=== PATIENT | female | born 1955 | race Caucasian/White ===

== ENCOUNTER → 2020-01-04 09:49 | Outpatient (CLI) | payer BC, SELFPAY ==
[2020-01-04 10:36] LABS: Add Manual Diff / Slide Review NO; Basophils Absolute Auto 0 /uL (0-100); Basophils Percent Auto 0.9 % (0-2); Eosinophils Absolute Auto 100 /uL (0-450); Eosinophils Percent Auto 2.3 % (2-4); Hematocrit 39.1 % (36-46); Hemoglobin 13.4 g/dL (12.0-16.0); Lymphocytes Absolute Auto 1300 /uL (1100-4500); Lymphocytes Percent Auto 28.8 % (25-40); Mean Corpuscular HGB Conc 34.3 % (30-36); Mean Corpuscular Hemoglobin 30.5 PG (26-34); Monocytes Absolute Auto 400 /uL (0-900); Monocytes Percent Auto 9.2 % (3-14); Neutrophils Absolute Auto 2600 /uL (1500-7000); Neutrophils Percent Auto 58.8 % (50-75); Platelet Count 267 X10^3/uL (150-400); Red Cell Distribution Width 13.2 % (11.6-14.8); White Blood Cell Count 4.5 X10^3/uL (4.5-11.0)
[2020-01-04 10:53] LABS: Alanine Aminotransferase 17 IU/L (<35); Albumin 4.2 g/dL (3.5-5.0); Albumin Globulin Ratio 1.4 (1.0-2.8); Alkaline Phosphatase 61 U/L (38-126); Aspartate Aminotransferase 22 IU/L (14-36); Bilirubin Total 0.9 mg/dL (0.2-1.3); Blood Urea Nitrogen 15 mg/dL (7-17); Calcium 9.6 mg/dL (8.4-10.2); Carbon Dioxide 28 mmol/L (22-32); Chloride 103 mmol/L (98-107); Cholesterol 170 mg/dL (140-199); Estimated Glomerular Filt Rate > 60.0 mL/min (>60); Globulin 2.9 g/dL (1.7-4.1); Glucose 92 mg/dL (80-110); HDL Cholesterol 59 mg/dL (40-60); HEMOLYSIS < 15 (0-50); LDL Cholesterol Calculated 97 mg/dL (<100); Sodium 139 mmol/L (137-145); Total Protein 7.1 g/dL (6.3-8.2); Triglycerides 70 mg/dL (35-150)
[2020-01-04 11:04] LABS: Free T4, Direct Thyroxine 1.43 ng/dL (0.78-2.19)
[2020-01-04 11:08] LABS: Vitamin D 25 Hydroxy (D3) 56.7 ng/mL (30.0-100.0)
[2020-01-04 11:17] LABS: Thyroid Stimulating Hormone 1.88 uIU/mL (0.47-4.68)
== END ==
PROVIDERS: PCP Nurse Practitioner; Referring Provider Nurse Practitioner; Visit Provider Family Medicine
DX: E03.9 Hypothyroidism, unspecified (principal); E78.5 Hyperlipidemia, unspecified; R73.01 Impaired fasting glucose; E55.9 Vitamin D deficiency, unspecified
CPT/HCPCS: 36415; 80053; 80061; 82306; 84439; 84443; 84481; 85025

== ENCOUNTER → 2020-05-09 15:04 | Outpatient (CLI) | payer BC, SELFPAY ==
--- NOTE | 2020-05-09 15:06 | DI.RAD.S_ITS ---
PROCEDURE: XR CLAVICLE RT INDICATIONS: Medial border clavicular enlargement TECHNIQUE: 2 views of the clavicle were acquired. COMPARISON: None. FINDINGS: Bones: No fractures or dislocations. Coracoclavicular and acromioclavicular intervals are maintained. Visualized portions of the sternoclavicular joint appear unremarkable. Mild degenerative changes of the right acromioclavicular joint. No suspicious bony lesions. Soft tissues: No suspicious soft tissue calcifications. IMPRESSION: 1. Right shoulder without acute fracture or malalignment. 2. Mild degenerative changes of the right acromioclavicular joint. 3. Visualized portions of the right sternoclavicular joint appear unremarkable. Dictated by: Jarrett Roldan M.D. on 05/09/2020 at 15:22 Approved by: Jarrett Roldan M.D. on 05/09/2020 at 15:25
[2020-05-09 15:31] LABS: Add Manual Diff / Slide Review NO; Basophils Absolute Auto 100 /uL (0-100); Basophils Percent Auto 1.1 % (0-2); Eosinophils Absolute Auto 100 /uL (0-450); Eosinophils Percent Auto 1.7 % (2-4); Hematocrit 39.5 % (36-46); Hemoglobin 12.8 g/dL (12.0-16.0); Lymphocytes Absolute Auto 2200 /uL (1100-4500); Lymphocytes Percent Auto 33.9 % (25-40); Mean Corpuscular HGB Conc 32.5 % (30-36); Mean Corpuscular Hemoglobin 29.1 PG (26-34); Mean Corpuscular Volume 89.7 fL (80-100); Monocytes Absolute Auto 500 /uL (0-900); Monocytes Percent Auto 8.4 % (3-14); Neutrophils Absolute Auto 3600 /uL (1500-7000); Neutrophils Percent Auto 54.9 % (50-75); Platelet Count 262 X10^3/uL (150-400); Red Cell Distribution Width 13.4 % (11.6-14.8); White Blood Cell Count 6.5 X10^3/uL (4.5-11.0)
[2020-05-09 15:46] LABS: Erythrocyte Sedimentation Rate 11 MM/HR (0-20)
== END ==
PROVIDERS: PCP Family Medicine; Referring Provider Family Medicine; Visit Provider Family Medicine
DX: M89.319 Hypertrophy of bone, unspecified shoulder (principal)
CPT/HCPCS: 36415; 73000; 85025; 85651

== ENCOUNTER → 2020-05-14 11:02 | Outpatient (CLI) | payer BC, SELFPAY ==
--- NOTE | 2020-05-14 11:04 | DI.US.S_ITS ---
PROCEDURE: US SOFT TISSUE HEAD AND NECK INDICATIONS: Fullness around the anterior and inferior aspect of the neck TECHNIQUE: Real-time scanning was performed of the neck region of interest, with image documentation. COMPARISON: None. FINDINGS: The area of palpable lump in the lower medial right neck was interrogated with high megahertz linear transducer. Area of subjective lump is felt to correlate with the presence of a prominent right clavicular head at the right sternoclavicular joint. No suspicious mass is identified. IMPRESSION: Palpable lump likely corresponds to a prominent right clavicular head at the right sternoclavicular joint. Dictated by: Deo Reyes M.D. on 05/14/2020 at 12:28 Approved by: Deo Reyes M.D. on 05/14/2020 at 12:35
== END ==
PROVIDERS: PCP Family Medicine; Referring Provider Family Medicine; Visit Provider Family Medicine
DX: M89.319 Hypertrophy of bone, unspecified shoulder (principal); R22.1 Localized swelling, mass and lump, neck
CPT/HCPCS: 76536

== ENCOUNTER → 2020-10-21 08:42 | Outpatient (CLI) | payer BC, SELFPAY | PROVIDERS: PCP Family Medicine; Visit Provider Nurse Practitioner | DX: R30.0 Dysuria (principal) | CPT/HCPCS: 87086 ==

== ENCOUNTER → 2020-11-10 10:55 | Outpatient (CLI) | payer BC, SELFPAY ==
[2020-11-10 11:52] LABS: Alanine Aminotransferase 20 IU/L (<35); Albumin 4.3 g/dL (3.5-5.0); Albumin Globulin Ratio 1.3 (1.0-2.8); Alkaline Phosphatase 62 U/L (38-126); Aspartate Aminotransferase 26 IU/L (14-36); Bilirubin Total 0.9 mg/dL (0.2-1.3); Blood Urea Nitrogen 11 mg/dL (7-17); Calcium 9.7 mg/dL (8.4-10.2); Carbon Dioxide 32 mmol/L (22-32); Chloride 104 mmol/L (98-107); Estimated Glomerular Filt Rate > 60.0 mL/min (>60); Globulin 3.3 g/dL (1.7-4.1); Glucose 91 mg/dL (80-110); HEMOLYSIS < 15 (0-50); Potassium 4.6 mmol/L (3.4-5.1); Sodium 137 mmol/L (137-145); Total Protein 7.6 g/dL (6.3-8.2)
[2020-11-10 12:25] LABS: Free T4, Direct Thyroxine 1.16 ng/dL (0.78-2.19)
[2020-11-10 12:39] LABS: Thyroid Stimulating Hormone 1.81 uIU/mL (0.47-4.68)
== END ==
PROVIDERS: PCP Family Medicine; Referring Provider Family Medicine; Visit Provider Family Medicine
DX: E03.9 Hypothyroidism, unspecified (principal); I10 Essential (primary) hypertension
CPT/HCPCS: 36415; 80053; 84439; 84443

== ENCOUNTER → 2021-04-09 11:44 | Outpatient (CLI) | payer BC, SELFPAY ==
[2021-04-09 12:31] LABS: Add Manual Diff / Slide Review NO; Basophils Absolute Auto 0 /uL (0-100); Basophils Percent Auto 0.8 % (0-2); Eosinophils Absolute Auto 100 /uL (0-450); Hematocrit 37.2 % (36-46); Hemoglobin 12.5 g/dL (12.0-16.0); Lymphocytes Absolute Auto 1600 /uL (1100-4500); Lymphocytes Percent Auto 28.1 % (25-40); Mean Corpuscular HGB Conc 33.7 % (30-36); Mean Corpuscular Volume 88.8 fL (80-100); Monocytes Absolute Auto 500 /uL (0-900); Monocytes Percent Auto 8.9 % (3-14); Neutrophils Absolute Auto 3600 /uL (1500-7000); Neutrophils Percent Auto 61.2 % (50-75); Platelet Count 265 X10^3/uL (150-400); Red Blood Cell Count 4.18 X10^6/uL (4.0-5.2); Red Cell Distribution Width 13.6 % (11.6-14.8); White Blood Cell Count 5.8 X10^3/uL (4.5-11.0)
[2021-04-09 14:53] LABS: Alanine Aminotransferase 15 IU/L (<35); Albumin Globulin Ratio 1.5 (1.0-2.8); Alkaline Phosphatase 56 U/L (38-126); Aspartate Aminotransferase 23 IU/L (14-36); BUN Creatinine Ratio 20.7 (6-22); Bilirubin Total 1.2 mg/dL (0.2-1.3); Blood Urea Nitrogen 12 mg/dL (7-17); Calcium 9.6 mg/dL (8.4-10.2); Carbon Dioxide 28 mmol/L (22-32); Chloride 103 mmol/L (98-107); Estimated Glomerular Filt Rate > 60.0 mL/min (>60); Globulin 2.7 g/dL (1.7-4.1); Glucose 81 mg/dL (80-110); HEMOLYSIS < 15 (0-50); Potassium 3.9 mmol/L (3.4-5.1); Sodium 139 mmol/L (137-145); Total Protein 6.7 g/dL (6.3-8.2)
== END ==
PROVIDERS: PCP Family Medicine; Referring Provider Registered Nurse; Visit Provider Registered Nurse
DX: R10.9 Unspecified abdominal pain (principal)
CPT/HCPCS: 36415; 80053; 85025

== ENCOUNTER → 2021-04-13 08:06 | Outpatient (CLI) | payer BC, SELFPAY ==
--- NOTE | 2021-04-13 08:07 | DI.US.S_ITS ---
PROCEDURE: US ABDOMEN COMPLETE INDICATIONS: ABDOMINAL PAIN TECHNIQUE: Real-time scanning was performed of the abdominal and retroperitoneal organs, with image documentation. COMPARISON: None. FINDINGS: Liver: Liver is normal in size. The liver echotexture overall is within normal limits. Within the liver there are 2 hyperechoic homogeneous nonvascular lesions. One is seen within the medial left lobe measuring up to 11 mm and a 2nd seen posteriorly on the right measuring up to 1 cm. The main portal vein demonstrates normal size and demonstrates normal appearing, hepatopetal flow. Gallbladder: No findings of gallstones or sludge are seen. The gallbladder wall is not thickened, measuring 3 mm or less. No specific pericholecystic fluid is seen. The sonographic Lopez sign is negative. Biliary ducts: Intrahepatic bile ducts are non-dilated. Extrahepatic bile duct caliber measures 2 mm. Normal is 6-7 mm or less in diameter, or 10 mm or less post-cholecystectomy. Pancreas: Visualized portions of the pancreas are sonographically normal. Spleen: Spleen is normal in size and homogeneous in echotexture. Kidneys: Kidneys are normal in size and echotexture. Right kidney measures the 11.2 cm long; left kidney measures 10.7 cm long. No hydronephrosis. No solid masses. Tiny potential stones are seen on the right superiorly and inferiorly. Aorta: Visualized aorta is normal in caliber at less than 3 cm. Iliacs: Proximal common iliac arteries are normal in caliber at less than 2.5 cm. IVC: Intrahepatic inferior vena cava is patent. Miscellaneous: No free abdominal fluid. IMPRESSION: The gallbladder demonstrates a normal sonographic appearance. No biliary dilatation is seen. Likely liver hemangiomas can be seen. Although no specific imaging follow-up is recommended, attention should be paid to these foci on any future studies through the liver. Potential nonobstructing right-sided kidney stones. Dictated by: Sanjeev Michel M.D. on 04/13/2021 at 9:12 Approved by: Sanjeev Michel M.D. on 04/13/2021 at 9:14
== END ==
PROVIDERS: PCP Family Medicine; Referring Provider Registered Nurse; Visit Provider Registered Nurse
DX: R10.9 Unspecified abdominal pain (principal)
CPT/HCPCS: 76700

== ENCOUNTER → 2021-06-03 09:13 | Outpatient (CLI) | payer BC, SELFPAY ==
[2021-06-03 10:20] LABS: COVID19 -Nasal RAPID Negative (Negative)
== END ==
PROVIDERS: PCP Family Medicine; Visit Provider Surgery
DX: Z20.822 Contact with and (suspected) exposure to COVID-19 (principal)
CPT/HCPCS: 87635; C9803

== ENCOUNTER 2021-06-04 14:33 | Day surgery (SDC) | payer BC, SELFPAY ==
[2021-06-04] VITALS (7 sets, daily range): BP systolic 97–134; BP diastolic 58–87; PULSE 52–76; RESP 8–16; TEMP 36.7–37.3; O2SAT 96–99; BMI 22.8
[2021-06-04] MEDS: LACTATED RINGERS 1,000 ML 200 ML IV (14:41)
--- NOTE | 2021-06-04 15:11 | PM.PREOP ---
Pre-operative Note Interval Note History & Physical reviewed/Exam performed by Physician: Yes Changes to H&P: No
[2021-06-04] MEDS: LIDOCAINE 4% SOLN 50 ML 20 ML TOP (15:16)
[2021-06-04] MEDS: MIDAZOLAM 5 MG/5 ML VIAL IV (15:17)
[2021-06-04] MEDS: fentaNYL 250 MCG/5 ML INJ IV (15:17)
--- NOTE | 2021-06-04 15:54 | PM.OP.ENDO ---
Operative Date/Time/Diagnoses Date of procedure: 06/04/21 Time of procedure: 15:54 Pre-op diagnosis: abdominal pain Post-op diagnosis: same Procedure & Clinicians Study performed: esophagoduodenoscopy and colonoscopy Same procedure as scheduled: Yes Indications: epigastric pain and screening colonoscopy Surgeon: David Mi Procedure Notes Procedure in detail: The history and physical was performed/updated and the patient is ASA class is 2. The procedure was discussed in detail with the patient. Potential risks complications including infection, bleeding, missed diagnosis, perforation, need for surgery, and were explained. Their questions were answered and informed consent was obtained. Patient placed in left lateral decubitus position. Time out was performed. Procedural sedation was administered with Versed and Fentanyl. A bite block was placed. the scope was inserted into the mouth and advanced through the esophagus and into the stomach. The pylorus was intubated and the duodenum was normal to the 2nd portion. The scope was retroflexed within the stomach and there was a small hiatal hernia. No ulcers, or gastritis. The scope was withdrawn into the esophagus the Z line was seen at 40 cm from the incisions. There was no Corona's esophagitis or masses or strictures. Stomach was desufflated and scope removed. Patient tolerated procedure well. Examination began with a thorough inspection of the perianal area there was no evidence of fissures, fistulae, external hemorrhoids or cutaneous malignancy. The colonoscopy scope was then placed into the anal canal and was advanced to the cecum, which was identified by the ileocecal valve, the appendiceal orifice and the confluence of the taenia. The scope was then slowly withdrawn examining colon thoroughly in all directions, irrigating it of any residual stool. FINDINGS 1. Normal colon-no masses or polyps. 2. Normal stomach and esophagus The patient tolerated the procedure well. They will be discharged once criteria are met. The prep was of good/excellent quality. The withdrawl time was 7 minutes. The sedation time was 36 minutes. Specimen(s): none sent Complications: none Impression: Normal esophagoduodenoscopy and colonoscopy Post-procedure Recommendations: Colonscopy in 10 years Disposition: same day surgery
== END 2021-06-04 16:30 | disposition home or self-care (01) ==
PROVIDERS: PCP Family Medicine; Referring Provider Surgery; Visit Provider Surgery
PROC: 0DJ08ZZ Inspection of Upper Intestinal Tract, Via Natural or Artificial Opening Endoscopic (ICD-10-PCS; CPT 43235; principal; 2021-06-04 16:00)
PROC: 0DJD8ZZ Inspection of Lower Intestinal Tract, Via Natural or Artificial Opening Endoscopic (ICD-10-PCS; CPT 45378; 2021-06-04 16:00)
DX: Z12.11 Encounter for screening for malignant neoplasm of colon (principal); R10.13 Epigastric pain; K44.9 Diaphragmatic hernia without obstruction or gangrene
CPT/HCPCS: 43235; 45378; 99152; 99153; J2250; J3010

== ENCOUNTER → 2021-06-12 07:21 | Outpatient (CLI) | payer BC, SELFPAY ==
[2021-06-12 08:37] LABS: Add Manual Diff / Slide Review NO; Basophils Absolute Auto 0 /uL (0-100); Basophils Percent Auto 0.5 % (0-2); Eosinophils Absolute Auto 100 /uL (0-450); Eosinophils Percent Auto 2.7 % (2-4); Hematocrit 41.3 % (36-46); Hemoglobin 13.5 g/dL (12.0-16.0); Lymphocytes Absolute Auto 1900 /uL (1100-4500); Lymphocytes Percent Auto 35.1 % (25-40); Mean Corpuscular HGB Conc 32.6 % (30-36); Mean Corpuscular Hemoglobin 29.5 PG (26-34); Mean Corpuscular Volume 90.3 fL (80-100); Monocytes Absolute Auto 500 /uL (0-900); Monocytes Percent Auto 8.3 % (3-14); Neutrophils Absolute Auto 3000 /uL (1500-7000); Neutrophils Percent Auto 53.4 % (50-75); Platelet Count 270 X10^3/uL (150-400); Red Blood Cell Count 4.58 X10^6/uL (4.0-5.2); Red Cell Distribution Width 13.4 % (11.6-14.8); White Blood Cell Count 5.6 X10^3/uL (4.5-11.0)
[2021-06-12 08:59] LABS: Alanine Aminotransferase 13 IU/L (<35); Albumin 4.4 g/dL (3.5-5.0); Albumin Globulin Ratio 1.4 (1.0-2.8); Alkaline Phosphatase 62 U/L (38-126); Aspartate Aminotransferase 22 IU/L (14-36); Bilirubin Total 0.9 mg/dL (0.2-1.3); Blood Urea Nitrogen 12 mg/dL (7-17); Carbon Dioxide 27 mmol/L (22-32); Chloride 104 mmol/L (98-107); Estimated Glomerular Filt Rate > 60.0 mL/min (>60); Globulin 3.1 g/dL (1.7-4.1); Glucose 92 mg/dL (80-110); HEMOLYSIS < 15 (0-50); Iron 84 ug/dL (37-170); Potassium 4.1 mmol/L (3.4-5.1); Sodium 140 mmol/L (137-145); Total Protein 7.5 g/dL (6.3-8.2)
[2021-06-12 09:02] LABS: High Sensitivity CRP - Cardiac 0.6 mg/L (1.0-3.0)
[2021-06-12 09:10] LABS: Percent Iron Saturation 28 % (15-50); Total Iron Binding Capacity 305 ug/dL (265-497); Transferrin 270 mg/dL (206-381)
[2021-06-12 09:16] LABS: Free T3, Triiodothyronine Free 3.31 pg/mL (2.77-5.27); Progesterone, Total 1.75 ng/mL
[2021-06-12 09:17] LABS: Vitamin D 25 Hydroxy (D3) 69.1 ng/mL (30.0-100.0)
[2021-06-12 09:32] LABS: Estradiol, Total 19.9 pg/mL
[2021-06-12 09:48] LABS: Vitamin B12 429 pg/mL (239-931)
[2021-06-13 07:16] LABS: Sex Hormone Binding Globulin 73.6 nmol/L (17.3-125.0); Thyroid Peroxidase Antibodies 30 IU/mL (0-34)
[2021-06-13 07:36] LABS: Homocysteine 10.1 umol/L (0.0-17.2)
[2021-06-13 08:13] LABS: EBV Virus IgG Ab > 600.0 U/mL (0.0-17.9); EBV Virus IgM Ab < 36.0 U/mL (0.0-35.9)
[2021-06-13 10:13] LABS: Triiodothyronine T3 Total 103 ng/dL (71-180)
[2021-06-13 20:30] LABS: Anti Thyroglobulin Antibody 2.1 IU/mL (0.0-0.9)
[2021-06-14 14:02] LABS: Methylmalonic Acid,Serum 129 nmol/L (0-378)
[2021-06-15 14:35] LABS: Arsenic 1 ug/L (2-23); Cadmium, Blood None Detected ug/L (0.0-1.2); Lead, Blood 1 ug/dL (0-4); Mercury, Blood 2.1 ug/L (0.0-14.9)
[2021-06-16 01:07] LABS: Magnesium, RBC 4.2 mg/dL (4.2-6.8)
[2021-06-16 07:46] LABS: Triiodothyronine T3 Reverse 20.1 ng/dL (9.2-24.1)
[2021-06-18 18:18] LABS: Percent Free Testosterone 2.58 % (0.50-2.80); Pregnenolone 85 ng/dL (.); Testosterone Free 0.86 ng/dL (0.10-0.85); Testosterone Total 33.3 ng/dL (7.0-40.0)
[2021-07-13 08:51] LABS: Dehydroepiandrosterone (DHEA) 580
== END ==
PROVIDERS: PCP Family Medicine; Referring Provider Family Medicine; Visit Provider Family Medicine
DX: F41.9 Anxiety disorder, unspecified (principal); R14.0 Abdominal distension (gaseous); G47.9 Sleep disorder, unspecified; E63.9 Nutritional deficiency, unspecified
CPT/HCPCS: 36415; 80053; 82175; 82300; 82306; 82525; 82607; 82627; 82670; 83090; 83540; 83550; 83655; 83735; 83825; 83921; 84140; 84144; 84270; 84402; 84403; 84443; 84480; 84481; 84482; 84630; 85025; 86140; 86376; 86664; 86665; 86800

== ENCOUNTER → 2021-07-18 08:19 | Outpatient (CLI) | payer BC, SELFPAY ==
[2021-07-18 09:28] LABS: Free T4, Direct Thyroxine 1.24 ng/dL (0.78-2.19)
[2021-07-18 09:42] LABS: Thyroid Stimulating Hormone 2.47 uIU/mL (0.47-4.68)
[2021-07-18 09:49] LABS: Ferritin 53 ng/mL (11-264)
== END ==
PROVIDERS: PCP Family Medicine; Referring Provider Family Medicine; Visit Provider Family Medicine
DX: R53.82 Chronic fatigue, unspecified (principal)
CPT/HCPCS: 36415; 82728; 84439; 84443

== ENCOUNTER → 2021-09-04 14:52 | Outpatient (CLI) | payer BC, SELFPAY ==
--- NOTE | 2021-09-04 14:52 | DI.MG.S_ITS ---
BILATERAL DIGITAL SCREENING MAMMOGRAM 3D/2D WITH CAD: 09/04/2021 CLINICAL: Routine screening. Baseline exam by default. No prior exams were available for comparison. The tissue of both breasts is predominantly fatty. Current study was also evaluated with a Computer Aided Detection (CAD) system. There is a 0.7 cm round asymmetry in the left breast middle depth inferior region seen on the mediolateral oblique view only 6 cm from the nipple. No other significant masses, calcifications, or other findings are seen in either breast. IMPRESSION: INCOMPLETE: NEEDS ADDITIONAL IMAGING EVALUATION The 0.7 cm round asymmetry in the left breast is indeterminate. A diagnostic mammogram and ultrasound is recommended. This exam was interpreted at Station ID: [id number]. NOTE: For mammograms, a report in lay terms will be sent to the patient. Approximately 15% of breast malignancies will not be visualized mammographically. In the management of a palpable breast mass, a negative mammogram must not discourage biopsy of a clinically suspicious lesion. Electronically Signed By: Horacio Payne acr/:09/04/2021 15:41:48 letter sent: Additional Imaging Needed ACR BI-RADS Category 0: Incomplete [id number]
== END ==
PROVIDERS: Family Provider Family Medicine; PCP Family Medicine; Referring Provider Family Medicine; Visit Provider Family Medicine
DX: Z12.31 Encounter for screening mammogram for malignant neoplasm of breast (principal)
CPT/HCPCS: 77063; 77067

== ENCOUNTER 2021-09-21 10:08 | Outpatient (RCR) | payer BC, SELFPAY ==
--- NOTE | 2021-09-21 16:52 | PT.OIE ---
Current Diagnoses Sciatica, left side (09/21/21) Low back pain, unspecified (09/21/21) Muscle weakness (generalized) (09/21/21) Past Medical History (Last Reviewed 08/25/21 @ 08:23 by LACEY Kruse) Abdominal pain Actinic keratosis Chicken pox Clavicle enlargement Hearing loss Hypertension Low back pain Osteopenia after menopause Screening for malignant neoplasm of colon Vision disorder Visit Care Team Role Provider Type Abner Avila DO Family Provider Physician Primary Care Provider Specialty: Family Practice Address: [address] [place] [address], [facility] Email: [email or web address] LACEY Kruse Attending Provider Advanced Yardage Tufting Machine Operator Referring Provider Specialty: Medical Address: [address] [place] [address], [facility] Email: [email or web address] Physical Therapy Initial Evaluation PT-OP-A Visit Information Start: 09/17/21 17:29 Freq: Status: Active Protocol: Document 09/21/21 10:39 LRN (Rec: 09/21/21 11:27 LRN [id number]) Out-Patient Physical Therapy Visit Information Visit Information Visit Type Initial Evaluation Visit Start Time 10:39 Visit Stop Time 11:26 Total Visit Minutes 47 Visit Number 1 Evaluation Information Evaluation Date 09/21/21 Precautions Precautions Controlled elevated blood pressure, Thyroid , fell last week picking up Xmas presents and fell when a cushion fell, hitting her; and 06/20/21 was messing with mask and fell down 2 stairs. PT-OP-B Current Condition Start: 09/17/21 17:29 Freq: Status: Active Protocol: Document 09/21/21 10:39 LRN (Rec: 09/21/21 11:27 LRN [id number]) Current Condition History of Current Condition Onset Date First of Jul 2021. Current Complaints Thread pull form middle of L buttock to back of knee. History of Current Condition 3 weeks after recent fall started to have L buttock pain to posterior knee. Has been improving so now she has a thread of pain from middle of L buttock to behind the posterior L knee. States her limitations (per [facility]) are from general aches/pains, not solely associated to the L leg pain. Prior Treatments and Tests None Future Testing and Treatments Planned None Treatment Goals Patient/Caregiver Goals Pt goal is to decrease the discomfort after prolonged sitting (45+ minutes) and learn what yoga ex's she can do. Wants to start back to self care (yoga & strength training). Prior Functional Status Baseline Function- ADL's Independent Baseline Function- Mobility Independent Baseline Function- Gait Walked 3-5 miles a day with . Baseline Function- Recreation/Hobbies Weight videos for strengthening. Baseline Function- Other Slept well while living in [facility]. Current Functional Impairments (Reported) Functional Limitations- ADL's Discomfort in L leg after sitting 45+ minutes reading ( legs crossed), and has tightness behind the L knee when uncrossing the knee. She states it goes away after walking aournd for 30 secs ( walking to kitchen or bathroom ). Functional Limitations- Mobility/Gait Walked 3-5 miles a day with . Functional Limitations- Recreation/ Not doing any ex except for Hobbies walking. Functional Limitations- Other Not sleeping well, getting 5-6 hrs sleep over the past 2 yrs after moving to [place] from [facility]. Personal Factors Other Personal Factors That May Effect Recent falls, depression, Therapy/Recovery hypothyroid. PT-OP-C Subjective Start: 09/17/21 17:29 Freq: Status: Active Protocol: Document 09/21/21 10:39 LRN (Rec: 09/21/21 11:27 LRN [id number]) Patient Questionnaires Oswestry Low Back Index Oswestry Score 10 Oswestry Impairment 1 to 19% Impaired (Score 1-19) OP-PT Pain Assessment Pain Assessment Grid Paper Pain Assessment Grid Completed Yes Location Low Back Pain Location Details Posterior L hip to posterior knee. Intensity 3 Scale Used Numeric (0 - 10) Description Dull Description- Other Pulling Frequency Intermittent Pain Duration Short Pain Aggravating Factors Changing Position Other Pain Alleviating Factors Activity - walking PT-OP-G Mobility & Gait Start: 09/17/21 17:29 Freq: Status: Active Protocol: Document 09/21/21 10:39 LRN (Rec: 09/21/21 11:27 LRN [id number]) OP Gait Assessment Gait Gait Assistance Required: Independent Assistive Devices Assistive Device None Comments Gait Comments Feels like a thread pulling in L posterior hip to posterior knee. Stair Climbing Evaluation Comments Stair Climbing Comments Doesn't feel pull in L posterior thigh unless there is tightness behind the knee. PT-OP-H Neuro Start: 09/17/21 17:29 Freq: Status: Active Protocol: Document 09/21/21 10:39 LRN (Rec: 09/21/21 11:27 LRN [id number]) Sensation Evaluation Gross Sensation Gross Sensation WNL PT-OP-J Posture/Palpation/Skin Start: 09/17/21 17:29 Freq: Status: Active Protocol: Document 09/21/21 10:39 LRN (Rec: 09/21/21 11:27 LRN [id number]) Posture Evaluation Position Standing Head/C-Spine Posture Forward Head T-Spine Posture Flattened,Flexible Scoliosis on (L) Pelvis Posture Anteriorly Tilted Foot Arch (L) High Arch,(R) High Arch Comments Posture Comments Low L iliac cresast & PSIS, C- curve thoracic spine with apex on left. Palpation Assessment Location Leg Length Palpation Location Medial Malleolus in supine Palpation Details R leg long ASIS Palpation Location ASIS Palpation Details R is deep and outflared in supine Sacral level Palpation Location Sacrum Palpation Details L rotated PT-OP-K Range of Motion Start: 09/17/21 17:29 Freq: Status: Active Protocol: Document 09/21/21 10:39 LRN (Rec: 09/21/21 11:27 LRN [id number]) Lumbar Spine Range of Motion Lumbar Spine Active Degrees Testing Position Standing Flexion 75 Extension 25 Rotation Left 30 Rotation Right 30 Lateral Flexion Left 12 Lateral Flexion Right 12 Comments Trunk Flex is 75 deg's with 53 deg's hip flexion Trunk Ext is 25 deg's with 10 deg's hip flexion Hip Goniometric Range of Motion Hip Right Passive Testing Position Supine Straight Leg Raise 73 Abduction 40 Internal Rotation 25 External Rotation 65 Left Passive Testing Position Supine Straight Leg Raise 78 Abduction 45 Internal Rotation 40 External Rotation 70 PT-OP-L Special Tests Start: 09/17/21 17:29 Freq: Status: Active Protocol: Document 09/21/21 10:39 LRN (Rec: 09/21/21 11:27 LRN [id number]) Special Tests Lumbar Spine Special Tests Straight Leg Raise Test Results 73 deg's right, 78 deg's left. Comments Probably no lumbar involvement with R LE pain. PT-OP-M Strength Start: 09/17/21 17:29 Freq: Status: Active Protocol: Document 09/21/21 10:39 LRN (Rec: 09/21/21 11:27 LRN [id number]) Trunk Strength Trunk Manual Muscle Testing Core Stabilization Pt able to maintain core stability with LE MMT. Hip Strength Hip Manual Muscle Testing Right Flexion (L2) 4- Good- Extension (S1) 4- Good- Adduction 4+ Good+ Comments Trunk strength is 5/5 except as indicated above. Left Flexion (L2) 4 Good Extension (S1) 3 Fair Adduction 3 Fair Internal Rotation 3 Fair Comments Trunk strength is 5/5 except as indicated above. PT-OP-Q Treatments Start: 09/17/21 17:29 Freq: Status: Active Protocol: Document 09/21/21 10:39 LRN (Rec: 09/21/21 11:27 LRN [id number]) Self-Care/Home Management Treatment Education Other Education Discussion of results of evaluation, goals, and plan of care (POC) timeline. Pt agreeable to goals and POC. PT-OP-T Assessment and Plan Start: 09/17/21 17:29 Freq: Status: Active Protocol: Document 09/21/21 10:39 LRN (Rec: 09/21/21 11:27 LRN [id number]) Physical Therapy Assessment Rehab Potential Rehabilitation Potential Excellent Evaluation Complexity Number of Personal Factors/Comorbidities 1-2 Number of Body Systems Impaired 4 or More Clinical Presentation at Evaluation Evolving Impairments Impairments Activity Tolerance,Pain, Posture,ROM,Strength Goals Three Impairment Decreased Hip strength/ stability Short Term Goal (STG) Pt will be educated in self care L hip strengthening for flex, ext, AD, IR (right side for flex, ext, AD. STG Duration 10/09/21 Leader Writer Goal (LTG) Pt will demonstrated improved L hip strength with ability to walk without onset of pulling in the back of the L thigh. LTG Duration 11/20/21 Two Impairment L Sciatic Pain rated 3/10 Impairment Trunk flex is 75 deg's with 53 deg's hip flexion. PSLR is 78 deg's left, 73 deg' s right. Short Term Goal (STG) Pt will be educated in LE neural stretch. STG Duration 10/02/21 Half-Way Goal (LTG) Decrease L sciatic pain with pt able to sit for > 45' without onset of posterior thigh tightness. LTG Duration 11/20/21 One Impairment HEP Short Term Goal (STG) Pt will be educated in progressive TA exercises for pelvic/lumbar stabilization. STG Duration 10/16/21 Leader Writer Goal (LTG) Pt will be independent in a self care HEP of thoracic, LB, hip mobilty exercises. LTG Duration 11/20/21 Assessment Summary Assessment Pt presents with resolving L LE Sciatic pain due to probably pelvic obliquity of posteriorly rotated L innominate, L rotated sacrum & C-curve thoracic spine with apex on left. The pt will benefit from skilled physical therapy for correction and stabilization education of L innominate/sacrum and postural changes. Pt will benefit from skilled physical therapy to achieve the above stated goals. Physical Therapy Plan Frequency and Duration Frequency of Treatment 2x/Week Plan of Care Start Date 09/21/21 Plan of Care End Date 11/20/21 Therapeutic Interventions Therapeutic Interventions Aquatic Therapy,Home Exercise Program,Joint Mobilizations, Manual Therapy,Neuromuscular Re-education,Patient/Caregiver Education,Self-Care/Home Management,Soft Tissue Mobilization,Taping, Therapeutic Activities, Therapeutic Exercises Modalities Cold Pack/Ice Massage,Hot Packs,Ultrasound Next Visit Focus/Plan Next Note Type Treatment Note Next Visit Plan Manual therapy to correct a posteriorly rotated L innominate, L rotated sacrum and exercises to decrease the C-curve of the thoracic spine (apex L) and improve mobility of flattened thoracic spine and forward head. Focus on pt goal of HEP (LLE neural stretch, L hip strengthening for flex, ext, AD, IR (right side for flex, ext, AD; progressive TA ex's, thoracic/ LB/hip mobility).
--- NOTE | 2021-09-21 16:52 | PT.OPPOC ---
Physical, Occupational & Speech Therapy At [facility] Current Diagnoses Sciatica, left side (09/21/21) Low back pain, unspecified (09/21/21) Muscle weakness (generalized) (09/21/21) Visit Care Team Role Provider Type Abner Avila DO Family Provider Physician Primary Care Provider Specialty: Family Practice Address: [address] [place] [address], [id number] Email: [email or web address] LACEY Kruse Attending Provider Advanced Medical Laboratory Manager Referring Provider Specialty: Medical Address: [address] [place] [address], [id number] Email: [email or web address] Plan Of Care PT-OP-T Assessment and Plan Start: 09/17/21 17:29 Freq: Status: Active Protocol: Document 09/21/21 10:39 LRN (Rec: 09/21/21 11:27 LRN [id number]) Physical Therapy Assessment Rehab Potential Rehabilitation Potential Excellent Evaluation Complexity Number of Personal Factors/Comorbidities 1-2 Number of Body Systems Impaired 4 or More Clinical Presentation at Evaluation Evolving Impairments Impairments Activity Tolerance,Pain, Posture,ROM,Strength Goals Three Impairment Decreased Hip strength/ stability Short Term Goal (STG) Pt will be educated in self care L hip strengthening for flex, ext, AD, IR (right side for flex, ext, AD. STG Duration 10/09/21 Pantograph Watcher Goal (LTG) Pt will demonstrated improved L hip strength with ability to walk without onset of pulling in the back of the L thigh. LTG Duration 11/20/21 Two Impairment L Sciatic Pain rated 3/10 Impairment Trunk flex is 75 deg's with 53 deg's hip flexion. PSLR is 78 deg's left, 73 deg' s right. Short Term Goal (STG) Pt will be educated in LE neural stretch. STG Duration 10/02/21 Pantograph Watcher Goal (LTG) Decrease L sciatic pain with pt able to sit for > 45' without onset of posterior thigh tightness. LTG Duration 11/20/21 One Impairment HEP Short Term Goal (STG) Pt will be educated in progressive TA exercises for pelvic/lumbar stabilization. STG Duration 10/16/21 Pantograph Watcher Goal (LTG) Pt will be independent in a self care HEP of thoracic, LB, hip mobilty exercises. LTG Duration 11/20/21 Assessment Summary Assessment Pt presents with resolving L LE Sciatic pain due to probably pelvic obliquity of posteriorly rotated L innominate, L rotated sacrum & C-curve thoracic spine with apex on left. The pt will benefit from skilled physical therapy for correction and stabilization education of L innominate/sacrum and postural changes. Pt will benefit from skilled physical therapy to achieve the above stated goals. Physical Therapy Plan Frequency and Duration Frequency of Treatment 2x/Week Plan of Care Start Date 09/21/21 Plan of Care End Date 11/20/21 Therapeutic Interventions Therapeutic Interventions Aquatic Therapy,Home Exercise Program,Joint Mobilizations, Manual Therapy,Neuromuscular Re-education,Patient/Caregiver Education,Self-Care/Home Management,Soft Tissue Mobilization,Taping, Therapeutic Activities, Therapeutic Exercises Modalities Cold Pack/Ice Massage,Hot Packs,Ultrasound Next Visit Focus/Plan Next Note Type Treatment Note Next Visit Plan Manual therapy to correct a posteriorly rotated L innominate, L rotated sacrum and exercises to decrease the C-curve of the thoracic spine (apex L) and improve mobility of flattened thoracic spine and forward head. Focus on pt goal of HEP (LLE neural stretch, L hip strengthening for flex, ext, AD, IR (right side for flex, ext, AD; progressive TA ex's, thoracic/ LB/hip mobility). Plan of Care Dates Plan of Care Start Date 09/21/21 Plan of Care End Date 11/20/21 Electronically Signed by: Michelle Stevens, PT 09/22/21 [id number] Please Sign and Return: I have reviewed this Plan of Care and certify that the skilled therapy services above are required to meet the patient?s needs. Physician Signature Date Printed Name and Credentials Clinical Instructor Signature Printed Name and Credentials
--- NOTE | 2021-10-01 17:33 | PT-OP ANOTE ---
Noted pt has cancelled all remaining appointments with reason of fractured wrist. Pt called, message left requesting pt call back before 10/09/21, if not wanting to be discharged from therapy; otherwise pt will be discharged from therapy after 10/09/21.
--- NOTE | 2021-10-09 08:35 | PT-OP ANOTE ---
States had surgery yesterday on her R wrist. Surgery was to put plate in distal radius. She states plan is to remove splint part next week, and in a week or so therapy. Pt understands her current chart will be discharged due to change in medical status, and she will need a new referral to return to therapy. Pt agreeable.
--- NOTE | 2021-10-09 09:01 | PT.OPDS ---
Current Diagnoses Sciatica, left side (09/21/21) Low back pain, unspecified (09/21/21) Muscle weakness (generalized) (09/21/21) Visit Care Team Role Provider Type Abner Avila DO Family Provider Physician Primary Care Provider Specialty: Family Practice Address: [address] [place] [address] Email: [email or web address] Attending Provider Advanced Feller Seam Operator Referring Provider Specialty: Medical Address: [address] [place] [address], [facility] Email: [email or web address] Visit Number Visit Number 1 Discharge Summary PT-OP-B Current Condition Start: 09/17/21 17:29 Freq: Status: Active Protocol: Document 09/21/21 10:39 LRN (Rec: 09/21/21 11:27 LRN [id number]) Current Condition History of Current Condition Onset Date First of Jul 2021. Current Complaints Thread pull form middle of L buttock to back of knee. History of Current Condition 3 weeks after recent fall started to have L buttock pain to posterior knee. Has been improving so now she has a thread of pain from middle of L buttock to behind the posterior L knee. States her limitations (per [facility]) are from general aches/pains, not solely associated to the L leg pain. Prior Treatments and Tests None Future Testing and Treatments Planned None Treatment Goals Patient/Caregiver Goals Pt goal is to decrease the discomfort after prolonged sitting (45+ minutes) and learn what yoga ex's she can do. Wants to start back to self care (yoga & strength training). Prior Functional Status Baseline Function- ADL's Independent Baseline Function- Mobility Independent Baseline Function- Gait Walked 3-5 miles a day with . Baseline Function- Recreation/Hobbies Weight videos for strengthening. Baseline Function- Other Slept well while living in [facility]. Current Functional Impairments (Reported) Functional Limitations- ADL's Discomfort in L leg after sitting 45+ minutes reading ( legs crossed), and has tightness behind the L knee when uncrossing the knee. She states it goes away after walking aournd for 30 secs ( walking to kitchen or bathroom ). Functional Limitations- Mobility/Gait Walked 3-5 miles a day with . Functional Limitations- Recreation/ Not doing any ex except for Hobbies walking. Functional Limitations- Other Not sleeping well, getting 5-6 hrs sleep over the past 2 yrs after moving to [place] from [facility]. Personal Factors Other Personal Factors That May Effect Recent falls, depression, Therapy/Recovery hypothyroid. PT-OP-C Subjective Start: 09/17/21 17:29 Freq: Status: Active Protocol: Document 10/09/21 08:47 LRN (Rec: 10/09/21 09:00 LRN [id number]) OP-PT Subjective Patient Comments Patient Comments Per telephone, pt states she had R wrist surgery yesterday and that she was told the splint would be removed next week and therapy started in 1- 2 weeks. Pt understands her current chart will be discharged and she will need a new referral to return for therapy for her wrist. PT-OP-G Mobility & Gait Start: 09/17/21 17:29 Freq: Status: Active Protocol: Document 09/21/21 10:39 LRN (Rec: 09/21/21 11:27 LRN [id number]) OP Gait Assessment Gait Gait Assistance Required: Independent Assistive Devices Assistive Device None Comments Gait Comments Feels like a thread pulling in L posterior hip to posterior knee. Stair Climbing Evaluation Comments Stair Climbing Comments Doesn't feel pull in L posterior thigh unless there is tightness behind the knee. PT-OP-H Neuro Start: 09/17/21 17:29 Freq: Status: Active Protocol: Document 09/21/21 10:39 LRN (Rec: 09/21/21 11:27 LRN [id number]) Sensation Evaluation Gross Sensation Gross Sensation WNL PT-OP-J Posture/Palpation/Skin Start: 09/17/21 17:29 Freq: Status: Active Protocol: Document 09/21/21 10:39 LRN (Rec: 09/21/21 11:27 LRN [id number]) Posture Evaluation Position Standing Head/C-Spine Posture Forward Head T-Spine Posture Flattened,Flexible Scoliosis on (L) Pelvis Posture Anteriorly Tilted Foot Arch (L) High Arch,(R) High Arch Comments Posture Comments Low L iliac cresast & PSIS, C- curve thoracic spine with apex on left. Palpation Assessment Location Leg Length Palpation Location Medial Malleolus in supine Palpation Details R leg long ASIS Palpation Location ASIS Palpation Details R is deep and outflared in supine Sacral level Palpation Location Sacrum Palpation Details L rotated PT-OP-K Range of Motion Start: 09/17/21 17:29 Freq: Status: Active Protocol: Document 09/21/21 10:39 LRN (Rec: 09/21/21 11:27 LRN [id number]) Lumbar Spine Range of Motion Lumbar Spine Active Degrees Testing Position Standing Flexion 75 Extension 25 Rotation Left 30 Rotation Right 30 Lateral Flexion Left 12 Lateral Flexion Right 12 Comments Trunk Flex is 75 deg's with 53 deg's hip flexion Trunk Ext is 25 deg's with 10 deg's hip flexion Hip Goniometric Range of Motion Hip Right Passive Testing Position Supine Straight Leg Raise 73 Abduction 40 Internal Rotation 25 External Rotation 65 Left Passive Testing Position Supine Straight Leg Raise 78 Abduction 45 Internal Rotation 40 External Rotation 70 PT-OP-L Special Tests Start: 09/17/21 17:29 Freq: Status: Active Protocol: Document 09/21/21 10:39 LRN (Rec: 09/21/21 11:27 LRN [id number]) Special Tests Lumbar Spine Special Tests Straight Leg Raise Test Results 73 deg's right, 78 deg's left. Comments Probably no lumbar involvement with R LE pain. PT-OP-M Strength Start: 09/17/21 17:29 Freq: Status: Active Protocol: Document 09/21/21 10:39 LRN (Rec: 09/21/21 11:27 LRN [id number]) Trunk Strength Trunk Manual Muscle Testing Core Stabilization Pt able to maintain core stability with LE MMT. Hip Strength Hip Manual Muscle Testing Right Flexion (L2) 4- Good- Extension (S1) 4- Good- Adduction 4+ Good+ Comments Trunk strength is 5/5 except as indicated above. Left Flexion (L2) 4 Good Extension (S1) 3 Fair Adduction 3 Fair Internal Rotation 3 Fair Comments Trunk strength is 5/5 except as indicated above. PT-OP-T Assessment and Plan Start: 09/17/21 17:29 Freq: Status: Active Protocol: Document 10/09/21 08:47 LRN (Rec: 10/09/21 09:00 LRN [id number]) Physical Therapy Assessment Goals Three Impairment Decreased Hip strength/ stability Short Term Goal (STG) Pt will be educated in self care L hip strengthening for flex, ext, AD, IR (right side for flex, ext, AD. STG Duration 10/09/21 Senior Care Goal (LTG) Pt will demonstrated improved L hip strength with ability to walk without onset of pulling in the back of the L thigh. LTG Duration 11/20/21 Two Impairment L Sciatic Pain rated 3/10 Impairment Trunk flex is 75 deg's with 53 deg's hip flexion. PSLR is 78 deg's left, 73 deg' s right. Short Term Goal (STG) Pt will be educated in LE neural stretch. STG Duration 10/02/21 Senior Care Goal (LTG) Decrease L sciatic pain with pt able to sit for > 45' without onset of posterior thigh tightness. LTG Duration 11/20/21 One Impairment HEP Short Term Goal (STG) Pt will be educated in progressive TA exercises for pelvic/lumbar stabilization. STG Duration 10/16/21 Banking Assistant Goal (LTG) Pt will be independent in a self care HEP of thoracic, LB, hip mobilty exercises. LTG Duration 11/20/21 Assessment Summary Assessment Pt has been seen for her initial evaluation of LLE sciatic pain. She was not able to return due to suffering a R wrist fracture. Pt has had surgery on her R wrist yesterday and is planning on returning to therapy for treatment of her R wrist; therefore pt is being discharged from therapy today. She is planning on returning to therapy for treatment of her R wrist. I would recommend when pt has complete therapy for her R wrist, she be referred to therapy to resume her LLE Sciatic pain rehabilitation. Goals were not met. Physical Therapy Plan Discharge Physical Therapy Discharge Reasons Patient Request Discharge Comments See assessment above. Thank you for your referral.
== END 2021-11-30 15:04 ==
LOC: PHYS 10:08
PROVIDERS: Family Provider Family Medicine; PCP Family Medicine; Referring Provider Registered Nurse; Visit Provider Registered Nurse
DX: M54.50 Low back pain, unspecified (principal); M62.81 Muscle weakness (generalized); M54.32 Sciatica, left side
CPT/HCPCS: 97162; 97535

== ENCOUNTER 2021-09-28 09:21 | Emergency (ER) | payer BC, SELFPAY ==
[2021-09-28 09:51] VITALS: BP 140/85; PULSE 54; RESP 16; TEMP 36.7; O2SAT 100; BMI 22.3
--- NOTE | 2021-09-28 09:51 | DI.RAD.S_ITS ---
PROCEDURE: XR WRIST RT MIN 3V INDICATIONS: Fall/pain/injury TECHNIQUE: 4 views of the wrist were acquired. COMPARISON: None. FINDINGS: Bones: There is a moderately displaced, comminuted fracture seen of the distal radius, with impaction fracture fragments. Dorsal angulation of fracture fragments can be seen. There is believed to be mild intra-articular involvement. No radiocarpal dislocation can be seen. No lunate dislocation can be seen. No associated fracture can be seen of the distal ulna. Degenerative changes are seen throughout, which are most prominent involving the 1st carpometacarpal joint. Milder degenerative changes are seen elsewhere. Scaphoid view: No navicular fractures are seen. Soft tissues: No suspicious soft tissue calcifications. IMPRESSION: Comminuted, impacted distal radius fracture, with dorsal angulation. Mild intra-articular involvement is believed to be present. No associated ulnar styloid fracture is seen. If it would be helpful for clinical management decision making in this patient with this given history, please consider a dedicated wrist CT for further evaluation. Dictated by: Sanjeev Michel M.D. on 09/28/2021 at 9:38 Approved by: Sanjeev Michel M.D. on 09/28/2021 at 9:39
--- NOTE | 2021-09-28 09:52 | ED.UPPEXIN ---
HPI - Extremity Injury (Upper) General Chief Complaint: Extremity Injury, Upper Stated Complaint: Poss broken wrist Time Seen by Provider: 09/28/21 09:47 History of Present Illness HPI narrative: Patient brought in by . They were on a walk about half an hour ago. She tripped on a rock and fell forward. Fell on outstretched hand, right side. Patient is right handed. Denies any other injuries. Complains of right wrist pain. No numbness or tingling. Skin is intact. She states pain 6/10. She does not want any medications for pain. But agrees for ice pack. Related Data Home Medications Medication Instructions Recorded Confirmed lorazepam 1 mg tablet 1 mg PO BEDTIME PRN 08/11/21 08/25/21 Previous Rx's Medication Instructions Recorded lisinopril 5 mg tablet 2.5 mg PO DAILY #45 tab 04/22/21 levothyroxine 50 mcg tablet See Rx Instructions .ROUTE 09/08/21 .COMPLEX #68 tab hydrocodone 5 mg-acetaminophen 325 1 tab PO Q6H PRN #20 tab 09/28/21 mg tablet ondansetron 4 mg disintegrating 4 mg PO Q8H PRN #10 tab 09/28/21 tablet Allergies Allergy/AdvReac Type Severity Reaction Status Date / Time No Known Drug Allergies Allergy Verified 08/25/21 08:19 Review of Systems Review of Systems Narrative: GENERAL: Denies chills, fatigue, malaise, fever, sweats. HEENT: Denies sinus pain, ear pain, sore throat RESPIRATORY: Denies dyspnea, cough CARDIOVASCULAR: Denies chest pain, palpitations GASTROINTESTINAL: Denies nausea, vomiting, abdominal pain : Denies dysuria, frequency, hematuria MUSCULOSKELETAL: Positive for muscle or bony pain SKIN: Denies rash, skin lesions NEUROLOGIC: Denies weakness, numbness ROS Unobtainable: All systems reviewed & are unremarkable except as noted in HPI and below Patient History Medical History Abdominal pain Actinic keratosis Chicken pox Clavicle enlargement Hearing loss Hypertension Low back pain Osteopenia after menopause Screening for malignant neoplasm of colon Vision disorder Family History Father Prostate cancer Hypertension Hyperlipidemia Mother Hyperlipidemia Stroke Sister History of being obese Grandfather Alzheimer's disease Social History household members: spouse Smoking Status: Never smoker Smoking Status: Never smoker alcohol intake frequency: holidays/special occasions only Substance Use Type: does not use Exam Narrative Exam Narrative: GENERAL: in no distress, not toxic not dyspneic HEAD: Normocephalic. EXTREMITIES: Examination right upper extremity. Hand is warm soft and pink with light touch intact to thumb and fingers. Able to dye machine tender. Limited range of motion due to right wrist pain, at the wrist. There is edema to the distal ulna and radius. Limited flexion extension of the wrist due to pain. Strong radial pulse. NEURO: AOx4. SKIN: Warm and dry PSYCH: Not anxious, is cooperative Initial Vital Signs Initial Vital Signs: Vital Signs Temperature 98.0 F 09/28/21 09:51 Pulse Rate 54 L 09/28/21 09:51 Respiratory Rate 16 09/28/21 09:51 Blood Pressure 140/85 09/28/21 09:51 Pulse Oximetry 100 09/28/21 09:51 Procedures Orthopedic Fracture Reduction Fracture #1: Time of procedure: 12:42 Time Out Performed: Yes Side: right Fracture Reduction Location: radius Analgesia: hematoma block Technique: traction/counter-traction Post Reduction X-rays Demonstrate: acceptable reduction Post-reduction neuro exam: intact Post-reduction vascular exam: intact Splint Applied: Yes Patient Tolerated Procedure: Well Orthopedic Splinting/Casting Injury #1: Time of procedure: 12:43 Side: right Upper Extremity Injury Location: wrist Upper Extremity Immobilizer: sugar tong splint Post splinting neuro exam: intact Post splinting vascular exam: intact Placed by: Provider (Dr. corrales) Course Course Course Narrative: No new issues during course of stay Orders Ordered: Discontinued Medications Lidocaine HCl (Lidocaine 1% 20 Ml) 10 ml INJ NOW ONE Stop: 09/28/21 11:55 Last Admin: 09/28/21 13:23 Dose: Not Given Documented by: QUE Reevaluation(s) Reevaluation #1: Updated patient results of x-ray and need for reduction. She desires try hematoma block 1st. Consultations Consultation #1: Spoke with Orthopedics, Dr. barreto, recommends attempt to reduce fracture prior to splinting Consultation #2: Spoke with Dr. Canales again. Post reduction completed. Patient can be discharged home and follow-up in his office. Time: 13:12 Vital Signs Vital signs: Vital Signs - 8 hr 09/28/21 09:51 Temperature 98.0 F Pulse Rate 54 L Respiratory Rate 16 Blood Pressure 140/85 Pulse Oximetry 100 MDM - Extremity Injury (Upper) Differential Diagnosis Differential diagnosis: Likely sprain and strain of wrist and fracture of wrist Imaging Data Extremity x-ray #1: Radiologist's Impression: [address] [address] XRay Report Signed Patient: Wilma Lechuga MR#: [id number] : 1955 Acct:[id number] Age/Sex: 66 / F Date of Service: 09/28/21 Loc: ED Accession Number: [id number] ?? Procedure: XR wrist RT min 3V Ordering Provider: Elio Corrales MD PROCEDURE:? XR WRIST RT MIN 3V ? INDICATIONS: Fall/pain/injury ? TECHNIQUE:? 4 views of the wrist were acquired.? ? COMPARISON:? None. ? FINDINGS:? ? Bones:? There is a moderately displaced, comminuted fracture seen of the distal radius, with impaction fracture fragments.? Dorsal angulation of fracture fragments can be seen.? There is believed to be mild intra-articular involvement.? No radiocarpal dislocation can be seen.? No lunate dislocation can be seen. ? No associated fracture can be seen of the distal ulna.? Degenerative changes are seen throughout, which are most prominent involving the 1st carpometacarpal joint.? Milder degenerative changes are seen elsewhere.? ? Scaphoid view:? No navicular fractures are seen. ? Soft tissues:? No suspicious soft tissue calcifications.? ? ? IMPRESSION:? Comminuted, impacted distal radius fracture, with dorsal angulation. Mild intra-articular involvement is believed to be present.? ? No associated ulnar styloid fracture is seen. ? If it would be helpful for clinical management decision making in this patient with this given history, please consider a dedicated wrist CT for further evaluation.? ? Dictated by: Sanjeev Michel M.D. on 09/28/2021 at 9:38 ? ? Approved by: Sanjeev Michel M.D. on 09/28/2021 at 9:39 ? Extremity x-ray #2: Radiologist's Impression: [address] [address] XRay Report Signed Patient: Wilma Lechuga MR#: [id number] : 1955 Acct:[id number] Age/Sex: 66 / F Date of Service: 09/28/21 Loc: ED Accession Number: [id number] ?? Procedure: XR wrist RT 2V Ordering Provider: Elio Corrales MD PROCEDURE:? XR WRIST RT 2V ? INDICATIONS: Post reduction ? TECHNIQUE:? 2 views of the wrist were acquired.? ? COMPARISON:? [facility], CR, XR WRIST RT MIN 3V, 09/28/2021, 10:12. ? FINDINGS:? ? Bones:? Overlying cast material obscures fine detail evaluation.? There is been interval reduction of previously impacted distal radial fracture.? There remains mild dorsal dislocation of the distal fragment.? However, overall alignment has improved.? Fracture is comminuted with suspected intra-articular involvement although not as well seen on current exam. ? Soft tissues:? No suspicious soft tissue calcifications.? ? IMPRESSION:? Interval reduction of distal radial intra-articular fracture. ? ? Dictated by: Latoya South M.D. on 09/28/2021 at 12:58 ? ? Approved by: Latoya South M.D. on 09/28/2021 at 13:00 ? MDM Narrative Medical decision making narrative: Appropriate for discharge home. Neurovascularly intact. Improvement with reduction of the wrist. Patient tolerated very well. Return precautions reviewed patient. Splint care reviewed with patient and . Reviewed with orthopedist. Agrees for discharge and follow-up. Discharge Plan Departure Patient Disposition: Home Clinical Impression: Distal radius fracture, right Instructions: DI for Wrist Fracture Activity Restrictions/Additional Instructions: No driving or operating machinery when taking prescribed pain medication. Call provided orthopedic office today for office re-evaluation and possible surgery. Use sling for comfort. Elevate arm when at rest to reduce swelling. Return immediately if worsening questions concerns or any numbness or tingling or swelling to the hand or wrist or arm. Prescriptions: New hydrocodone-acetaminophen 5-325 mg tablet 1 tab PO Q6H PRN (Reason: pain) Qty: 20 0RF ondansetron 4 mg tablet,disintegrating 4 mg PO Q8H PRN (Reason: nausea and vomiting) Qty: 10 0RF No Action lisinopril 5 mg tablet 2.5 mg PO DAILY Qty: 45 3RF Rx Instructions: Take 1/2 tab at night for high blood pressure. levothyroxine 50 mcg tablet See Rx Instructions .ROUTE .COMPLEX Qty: 68 3RF Dose Instruction: TAKE 1 TABLET BY MOUTH DAILY ALTERNATING WITH 25MCG EVERY OTHER DAY ON AN EMPTY STOMACH 30 MINUTES PRIOR TO BREAKFAST Rx Instructions: TAKE 1 TABLET BY MOUTH DAILY ALTERNATING WITH 25MCG EVERY OTHER DAY ON AN EMPTY STOMACH 30 MINUTES PRIOR TO BREAKFAST lorazepam 1 mg tablet 1 mg PO BEDTIME PRN0RF Referrals: Gina Barreto MD [Physician] - Abner Avila DO [Primary Care Provider] -
[2021-09-28] MEDS: LIDOCAINE 2% INJ MDV 20 ML (12:20)
--- NOTE | 2021-09-28 12:40 | DI.RAD.S_ITS ---
PROCEDURE: XR WRIST RT 2V INDICATIONS: Post reduction TECHNIQUE: 2 views of the wrist were acquired. COMPARISON: [facility], , XR WRIST RT MIN 3V, 09/28/2021, 10:12. FINDINGS: Bones: Overlying cast material obscures fine detail evaluation. There is been interval reduction of previously impacted distal radial fracture. There remains mild dorsal dislocation of the distal fragment. However, overall alignment has improved. Fracture is comminuted with suspected intra-articular involvement although not as well seen on current exam. Soft tissues: No suspicious soft tissue calcifications. IMPRESSION: Interval reduction of distal radial intra-articular fracture. Dictated by: Latoya South M.D. on 09/28/2021 at 12:58 Approved by: Latoya South M.D. on 09/28/2021 at 13:00
[2021-09-28 13:24] VITALS: BP 156/70; PULSE 61; RESP 18; O2SAT 100
== END 2021-09-28 13:24 | disposition home or self-care (01) ==
PROVIDERS: Emergency Provider Emergency Medicine; Family Provider Family Medicine; PCP Family Medicine
DX: S52.501A Unspecified fracture of the lower end of right radius, initial encounter for closed fracture (principal); W01.0XXA Fall on same level from slipping, tripping and stumbling without subsequent striking against object, initial encounter
CPT/HCPCS: 25605; 73100; 73110; 99283

== ENCOUNTER → 2021-10-07 10:53 | Outpatient (CLI) | payer BC, SELFPAY ==
[2021-10-07 13:36] LABS: COVID19 -Nasal RAPID Negative (Negative)
== END ==
PROVIDERS: Family Provider Family Medicine; PCP Family Medicine; Visit Provider Physician Assistant
DX: Z20.822 Contact with and (suspected) exposure to COVID-19 (principal)
CPT/HCPCS: 87635

== ENCOUNTER 2021-10-08 12:14 | Day surgery (SDC) | payer BC, SELFPAY ==
[2021-10-07 08:12] VITALS: BMI 22.6
[2021-10-08] VITALS (9 sets, daily range): BP systolic 108–150; BP diastolic 58–78; PULSE 49–63; RESP 8–20; TEMP 37.1–37.2; O2SAT 95–99; BMI 22.6
[2021-10-08] MEDS: LACTATED RINGERS 1,000 ML 84 ML IV (13:26)
--- NOTE | 2021-10-08 14:20 | PM.PREOP ---
Pre-operative Note Interval Note History & Physical reviewed/Exam performed by Physician: Yes Changes to H&P: No
--- NOTE | 2021-10-08 14:31 | PM.HP.1 ---
History of Present Illness History of Present Illness Date Patient Seen: 10/08/21 Time Patient Seen: 14:00 Chief complaint: RIGHT DISTAL RADIUS ORIF Narrative: 66-year-old female tripped and fell little week ago landing on her outstretched right arm sustaining a displaced intra-articular distal radius fracture. Patient History Medical History Abdominal pain Actinic keratosis Chicken pox Clavicle enlargement Hearing loss Hypertension Low back pain Osteopenia after menopause Screening for malignant neoplasm of colon Vision disorder Family & Social History Family History Father Prostate cancer Hypertension Hyperlipidemia Mother Hyperlipidemia Stroke Sister History of being obese Grandfather Alzheimer's disease Social History: household members spouse Tobacco & Substance use: Smoking Status Never smoker alcohol intake current alcohol intake frequency holiday/special occasion Substance Use Type does not use Meds Home Medications and Allergies Home Medications Medication Instructions Recorded Confirmed Type lisinopril 5 mg tablet 2.5 mg PO DAILY #45 tab 04/22/21 10/08/21 Rx lorazepam 1 mg tablet 1 mg PO BEDTIME PRN 08/11/21 10/08/21 History levothyroxine 50 mcg tablet See Rx Instructions .ROUTE 09/08/21 10/08/21 Rx .COMPLEX #68 tab hydrocodone 5 mg-acetaminophen 325 1 tab PO Q6H PRN #20 tab 09/28/21 10/08/21 Rx mg tablet Allergies Allergy/AdvReac Type Severity Reaction Status Date / Time No Known Drug Allergies Allergy Verified 08/25/21 08:19 Exam Vital Signs (past 8 hours): - 10/08/21 13:07 Temperature 98.8 F Pulse Rate 63 Respiratory Rate 16 Blood Pressure 150/70 H Pulse Oximetry 99 Oxygen Delivery Method Room Air Narrative Exam Narrative: Bruising and swelling to the fingers and hand. Patient's skin is intact. Ulnar, median, and radial nerve were retracted both motor and sensory function. Patient is nontender to palpation in the proximal forearm elbow and distal humerus. Assessment & Plan Assessment & Plan narrative: 66-year-old female with a displaced intra-articular distal radius fracture. Due to the displaced intra-articular nature, we recommended surgical fixation. I went over the risk and limitations associated the procedure. We discussed operative versus non operative treatment and the risks and limitations associated with both. All of her questions and concerns were answered to her full satisfaction. The risk, benefits, alternatives, possible complications, operative course, and postop outcomes were discussed. Complications including but not limiting to bleeding, infection, fracture, nerve injury, continued pain postoperatively or instability postoperatively were discussed in detail. Medical complications including but not limited to deep venous thrombosis event, anesthesia complications with excessive bleeding, vascular events or cardiac events and other possible complications were discussed in detail. Need for postoperative rehabilitation and anticipated hospital stay and clinical course were discussed in detail. Patient acknowledges understanding and elects to proceed with surgery. Time Spent With Patient Critical Care time: I spent a total of [] minutes of critical care time on this patient's care today; this time is exclusive of procedural time.
--- NOTE | 2021-10-08 14:35 | SUR.OPER ---
Supine on padded OR bed, head on pillow, arms secured on padded arm boards at <90 degrees abduction, legs uncrossed, safety belt at thigh, tape over blanket over lower legs.Right arm in control of surgeon
--- NOTE | 2021-10-08 14:51 | SUR.PREOP ---
Block start time [1440] . Monitoring initiated and maintained throughout procedure. Oxygen and medications given per anesthesiologist instructions. Patient remained stable throughout procedure, no adverse reactions noted. Block end time [1447]. See VS charting
[2021-10-08] MEDS: CEFAZOLIN 2 GM/20 ML SYRINGE IV (14:54)
--- NOTE | 2021-10-08 15:03 | P.PCN_ITS ---
Procedures Date/Time Date of procedure: 10/08/21 Time of procedure: 14:40 General Procedure description: Ultrasound guided supraclavicular brachial plexus nerve block for post op pain control after right distal radius ORIF by Dr. Espitia. Risk and benefits of procedure discussed with patient. ASA monitoring applied to patient. O2 given via nasal cannula. 2 mg Versed and 50 mcg fentanyl given for procedural sedation. Skin site was prepped with chlorhexidine and allowed to fully dry. Sterile gloves, mask, hat and probe cover were used to maintain sterility. 2% lidocaine and 30ga needle was used to make a small skin wheal at needle inse rtion site. Under ultrasound guidance, a 21ga 50mm Pajunk needle was directed near to the brachial plexus bundle adjacent (lateral) to the pulsatile subclavian artery. Patient reported no parasthesias. After negative aspiration, 20 mL 0.5% ropivacaine and 10mg dexamethasone were injected around brachial plexus. Patient tolerated procedure well.
--- NOTE | 2021-10-08 16:04 | P.OP_ITS ---
Operative Date/Time/Diagnoses Date of procedure: 10/08/21 Time of procedure: 15:00 Pre-op diagnosis: Right distal radius fracture Post-op diagnosis: same Procedure & Clinicians Procedure: Open reduction internal fixation of a right distal radius fracture CPT code 45407 Same procedure as scheduled: Yes Indications: Displaced intra-articular distal radius fracture Surgeon: Doe Espitia Click Yes if Unassisted: Yes Anesthesia Type: General and Peripheral nerve block Operative Notes Findings: Displaced intra-articular distal radius fracture Closure Type: primary Specimen(s): none sent Applied: implant(s) (Arthrex volar distal radius plate) Estimated Blood Loss (mL): 5 Tourniquet time (min): 42 Procedure in detail: On date of service, patient was met in the holding area where the operative site was signed and witnessed by the OR staff. The surgery was once again discussed with the patient and any remaining questions or concerns were answered to the patient's full satisfaction. Time-out was performed verifying patient's name procedure and operative site. Patient was taken back to the operating theater and placed on the operating table in a supine position. Great care was taken to ensure that all bony prominences were appropriately padded. Well-padded tourniquet was placed up along the upper extremity. Another time-out was performed verifying patient's name, procedure, and operative site. The upper extremity was then prepped and draped in the normal sterile fashion. Esmarch was used to exsanguinate the limb and the tourniquet was turned up to 250 mm of mercury. Fifteen blade was used to expose the distal radius. An incision was made over the FCR tendons. The FCR tendon was retracted and the floor of the tendon was opened with a 15 blade. The FPL tendon and muscle belly was retracted ulnarly giving us good visualization of the pronator quadratus. The pronator quadratus was excised off the distal radius using the 15 blade and then finished with a periosteal elevator. Next the brachia radialis attachment to the radial styloid was released to help with overall reduction. Retractors were placed allowing us good visualization of the distal radius as well as the shaft. A reduction man euver was performed and a K-wire was placed holding a provisional reduction of the intra-articular distal radius fracture. C-arm was brought in to verify overall reduction. Once we were satisfied with the overall reduction, a plate was placed and held provisionally with K-wires. C-arm was once again used to verify plate positioning as well as reduction. The plate was then fixated to the distal fragment using locking screws. Lateral C-arm views were used to verify that the screws were not intra-articular or broaching the dorsal cortex. At this point we are able to use the plate to help fine tune the overall reduction. Once we were satisfied with the overall reduction the plate was then secured to the shaft with a combination of locking and nonlocking screws. Final x-rays were obtained. The wound was copiously irrigated and closed in a layered fashion. The wrist and hand were cleaned dried dressed. Patient was placed into a splint and taken to the PACU in stable condition. Complications: none Post-operative Condition: stable Disposition: PACU Plan for aftercare: Patient will follow our postoperative protocol for distal radius fracture. Patient can engage in range of motion exercises of the wrist and the next 2-4 days.
--- NOTE | 2021-10-08 16:56 | SUR.PHASEII ---
1700 Ready to go home. Right arm completely numb from the block. No pain. Helped into clothes. Taken by wheelchair out to car
== END 2021-10-08 17:00 | disposition home or self-care (01) ==
PROVIDERS: Family Provider Family Medicine; PCP Family Medicine; Referring Provider Orthopaedic Surgery Orthopaedic Surgery of the Spine; Visit Provider Orthopaedic Surgery
PROC: (CPT 25608; principal; 2021-10-08 14:00)
DX: S52.571A Other intraarticular fracture of lower end of right radius, initial encounter for closed fracture (principal); W01.0XXA Fall on same level from slipping, tripping and stumbling without subsequent striking against object, initial encounter; I10 Essential (primary) hypertension
CPT/HCPCS: 25608; 64450; J0171; J0690; J1100; J1885; J2250; J2405; J2704; J3010

== ENCOUNTER → 2021-10-26 14:06 | Outpatient (CLI) | payer BC, SELFPAY ==
--- NOTE | 2021-10-26 | DI.MG.S_ITS ---
UNILATERAL LEFT DIGITAL DIAGNOSTIC MAMMOGRAM 3D/2D WITH ADDITIONAL VIEWS: 10/26/2021 CLINICAL: Additional evaluation requested from prior study. Comparison is made to exam dated: 09/04/2021 [facility]. The tissue of left breast is heterogeneously dense. This may lower the sensitivity of mammography. There is an oval low density focal asymmetry with an indistinct and circumscribed margin in the left breast at 5 o'clock posterior depth. No other significant masses or calcifications are seen in the breast. IMPRESSION: INCOMPLETE: NEEDS ADDITIONAL IMAGING EVALUATION The oval low density focal asymmetry in the left breast is indeterminate. An ultrasound is recommended. Ultrasound will be performed immediately following the current exam. This exam was interpreted at Station ID: [id number]. NOTE: For mammograms, a report in lay terms will be sent to the patient. Approximately 15% of breast malignancies will not be visualized mammographically. In the management of a palpable breast mass, a negative mammogram must not discourage biopsy of a clinically suspicious lesion. Electronically Signed By: Ben Ram M.D. ddkaren/:10/26/2021 14:26:27 ACR BI-RADS Category 0: Incomplete [id number]
--- NOTE | 2021-10-26 14:07 | DI.US.S_ITS ---
LIMITED ULTRASOUND OF LEFT BREAST AND AXILLA: 10/26/2021 CLINICAL: Patient returns today to evaluate an asymmetry in the left breast. Comparison is made to exams dated: 10/26/2021 mammogram and 09/04/2021 mammogram - [facility]. Color flow and real-time ultrasound of the left breast 4 o'clock, and axilla regions were performed on the areas of interest. There is a 0.9 cm x 0.5 cm x 0.8 cm oval mass with an indistinct margin in the left breast at 4 o'clock middle depth. This oval mass is hypoechoic. This correlates with mammography findings. Color flow imaging demonstrates that there is no vascularity present. There also is a 0.6 cm x 0.3 cm x 0.6 cm oval lymph node in the left breast at 4 o'clock posterior depth. This oval lymph node is of mixed echogenicity with fatty hilum. Color flow imaging demonstrates that there is no increase in vascularity. No suspicious enlarged lymph nodes were seen sonographically in the left axilla. IMPRESSION: SUSPICIOUS OF MALIGNANCY The 0.9 cm x 0.5 cm x 0.8 cm oval mass in the left breast at 4 o'clock middle depth is suspicious of malignancy. An ultrasound guided biopsy is recommended. The 0.6 cm x 0.3 cm x 0.6 cm oval lymph node in the left breast at 4 o'clock posterior depth appears benign. The findings were discussed with the patient at the conclusion of the study by Dr. Worrell. This exam was interpreted at Station ID: [id number]. Electronically Signed By: Ben reynolds/:10/26/2021 15:26:41 letter sent: Biopsy Required Ultrasound BI-RADS: 4 Suspicious for malignancy
== END ==
PROVIDERS: Family Provider Family Medicine; PCP Family Medicine; Referring Provider Family Medicine; Visit Provider Family Medicine
DX: R92.8 Other abnormal and inconclusive findings on diagnostic imaging of breast (principal); N63.23 Unspecified lump in the left breast, lower outer quadrant
CPT/HCPCS: 76642; 77065; G0279

== ENCOUNTER → 2021-11-09 14:06 | Outpatient (CLI) | payer BC, SELFPAY ==
--- NOTE | 2021-11-09 | PATH_ITS ---
[facility] Accession Number: [id number] . 01 Material submitted: . breast - LEFT BREAST MASS 4:00 4CMFN . 02 Diagnosis: Left Breast Mass, 4 o'clock, 4 cm From Nipple, Needle Core Biopsies: Fragments of fibroepithelial lesion, consistent with fibroadenoma. Additional fragments of breast parenchyma with no diagnostic abnormality. Negative for atypical hyperplasia, in situ or invasive carcinoma. [facility] 11/11/2021 1615 Local . 02 Comment: As part of routine quality coordinator, Dr. Casillas has reviewed this case and agrees with the diagnosis of a fibroepithelial lesion. . 02 Electronically signed: . Xavier Mojica MD, PhD, Pathologist NPI- [id number] . 01 Gross description: . Received one formalin-filled container, labeled with the patient's name and labeled left breast mass 4 o'clock 4 cm FN. The specimen is received with a plastic filter in container, sample loose in container and consists of multiple yellow-marquis portions of tissue which range in size from 0.7 x 0.2 x 0.2 cm to 1.4 x 0.3 x 0.2 cm. All fragments are totally submitted in one cassette. Possible collection date and time per requisition: 11/09/21 at 15:06. Total fixation time: Approximately 35 hours. ([id number]) /FRR 11/11/2021 0508 Local . 02 Pathologist provided ICD-10: D24.2 . 02 CPT . 602894 Performed at: 01 [facility] [address] [place] [address], [place], [place] [id number] MD Ben Dos Santos MD Phone: [phone] Performed at: 02 [facility] [address] [place] [id number] MD Narda Blanco MD Phone: [phone]
--- NOTE | 2021-11-09 | DI.MG.S_ITS ---
UNILATERAL LEFT DIGITAL DIAGNOSTIC MAMMOGRAM 3D/2D: 11/09/2021 CLINICAL: Postclip left. Comparison is made to exams dated: 10/26/2021 ultrasound, 10/26/2021 mammogram, and 09/04/2021 mammogram - [facility]. The tissue of left breast is heterogeneously dense. This may lower the sensitivity of mammography. There is a marker clip in the appropriate position in the left breast at 4 o'clock middle depth. This marker clip placement is at the biopsy site. IMPRESSION: POST PROCEDURE MAMMOGRAM FOR MARKER PLACEMENT There was a successful marker clip placement in the left breast middle depth. This exam was interpreted at Station ID: [id number]. NOTE: For mammograms, a report in lay terms will be sent to the patient. Approximately 15% of breast malignancies will not be visualized mammographically. In the management of a palpable breast mass, a negative mammogram must not discourage biopsy of a clinically suspicious lesion. Electronically Signed By: Domenica lim/penmichelet:11/09/2021 15:17:49 ACR BI-RADS Category Post-procedure mammogram for marker placement
--- NOTE | 2021-11-09 14:07 | DI.US.S_ITS ---
ULTRASOUND GUIDED BIOPSY LEFT BREAST WITH MARKING DEVICE INSERTED AND POST DIGITAL MAMMOGRAPHIC IMAGIN11/09/2021 CLINICAL: Left breast mass. PATIENT CONSENT: Risks (minor bleeding, infection, vasovagal reaction and repeat procedure), benefits and alternatives were explained to the patient and written informed consent was obtained. Correlation is made to exams dated: 10/26/2021 ultrasound, 10/26/2021 mammogram, and 09/04/2021 mammogram - [facility]. An ultrasound guided biopsy using real-time ultrasound was performed for the indistinct oval mass located in the left breast at 4 o'clock middle depth. The skin was prepped in the usual manner. Local anesthetic was administered to the access site. A skin makenna was made in the breast. A 13 gauge biopsy needle was placed adjacent to the abnormality under ultrasound guidance. Once the needle was documented to be in the correct location, five specimens were obtained using Vision biopsy clip. A clip was inserted into the biopsy cavity. A skin closure strip was applied to the access site. Post procedure digital mammographic imaging demonstrates the location device at the targeted area. The specimens were sent to the laboratory for pathological analysis. IMPRESSION: ULTRASOUND GUIDED BIOPSY BENIGN Ultrasound guided biopsy of the mass in the left breast at 4 o'clock middle depth was successful. Pathology indicates benign fibroadenoma (FA). Pathology results are concordant with imaging findings. Return to annual mammogram screening schedule is recommended. This exam was interpreted at Station ID: [id number]. Domenica Payne noel,acr/:11/18/2021 13:24:00
== END ==
PROVIDERS: Family Provider Family Medicine; PCP Family Medicine; Referring Provider Family Medicine; Visit Provider Family Medicine
DX: N63.23 Unspecified lump in the left breast, lower outer quadrant (principal)
CPT/HCPCS: 19083; 77065

== ENCOUNTER → 2022-04-02 12:42 | Outpatient (CLI) | payer BC, SELFPAY | PROVIDERS: Family Provider Family Medicine; PCP Family Medicine; Referring Provider Family Medicine; Visit Provider Family Medicine | DX: Z13.820 Encounter for screening for osteoporosis (principal); M85.89 Other specified disorders of bone density and structure, multiple sites; E21.3 Hyperparathyroidism, unspecified; Z78.0 Asymptomatic menopausal state; Z79.890 Hormone replacement therapy | CPT/HCPCS: 77080 ==

== ENCOUNTER → 2022-07-20 07:00 | Outpatient (CLI) | payer BC, SELFPAY ==
[2022-07-20 08:36] LABS: Add Manual Diff / Slide Review NO; Basophils Absolute Auto 0 /uL (0-100); Basophils Percent Auto 0.8 % (0-2); Eosinophils Absolute Auto 300 /uL (0-450); Eosinophils Percent Auto 4.4 % (2-4); Hemoglobin 12.9 g/dL (12.0-16.0); Lymphocytes Absolute Auto 2200 /uL (1100-4500); Mean Corpuscular HGB Conc 33.9 % (30-36); Mean Corpuscular Hemoglobin 29.9 PG (26-34); Mean Corpuscular Volume 88.1 fL (80-100); Monocytes Absolute Auto 500 /uL (0-900); Monocytes Percent Auto 8.8 % (3-14); Neutrophils Absolute Auto 3100 /uL (1500-7000); Platelet Count 259 X10^3/uL (150-400); Red Blood Cell Count 4.31 X10^6/uL (4.0-5.2); Red Cell Distribution Width 13.5 % (11.6-14.8); White Blood Cell Count 6.2 X10^3/uL (4.5-11.0)
[2022-07-20 09:17] LABS: Alanine Aminotransferase 22 IU/L (<35); Albumin Globulin Ratio 1.4 (1.0-2.8); Alkaline Phosphatase 50 U/L (38-126); Aspartate Aminotransferase 25 IU/L (14-36); BUN Creatinine Ratio 21.4 (6-22); Bilirubin Total 1.1 mg/dL (0.2-1.3); Blood Urea Nitrogen 15 mg/dL (7-17); Calcium 9.2 mg/dL (8.4-10.2); Carbon Dioxide 28 mmol/L (22-32); Chloride 105 mmol/L (98-107); Cholesterol 224 mg/dL (140-199); Estimated Glomerular Filt Rate > 60 mL/min (>60); Globulin 2.9 g/dL (1.7-4.1); Glucose 90 mg/dL (80-110); HDL Cholesterol 79 mg/dL (40-60); HEMOLYSIS < 15 (0-50); LDL Cholesterol Calculated 132 mg/dL (<100); Potassium 4.3 mmol/L (3.4-5.1); Sodium 139 mmol/L (137-145); Total Protein 6.9 g/dL (6.3-8.2); Triglycerides 65 mg/dL (35-150)
[2022-07-20 09:34] LABS: Free T3, Triiodothyronine Free 3.36 pg/mL (2.77-5.27); Free T4, Direct Thyroxine 1.18 ng/dL (0.78-2.19)
[2022-07-20 09:47] LABS: Thyroid Stimulating Hormone 4.02 uIU/mL (0.47-4.68)
[2022-07-22 00:08] LABS: Folate, RBC 1406 ng/mL (>498); Hemolysate 477.9 ng/mL (Not Estab.)
== END ==
PROVIDERS: Family Provider Family Medicine; PCP Family Medicine; Referring Provider Family Medicine; Visit Provider Family Medicine
DX: E03.9 Hypothyroidism, unspecified (principal); I10 Essential (primary) hypertension
CPT/HCPCS: 36415; 80053; 80061; 82747; 84439; 84443; 84481; 85014; 85025; 86140

== ENCOUNTER → 2022-09-30 10:58 | Outpatient (CLI) | payer MEDICARE, BC, SELFPAY ==
--- NOTE | 2022-09-30 | DI.MG.S_ITS ---
BILATERAL DIGITAL SCREENING MAMMOGRAM 3D/2D WITH CAD: 09/30/2022 CLINICAL: Routine screening. Comparison is made to exams dated: 11/09/2021 mammogram, 10/26/2021 ultrasound, 10/26/2021 mammogram, and 09/04/2021 mammogram - [facility]. Both breasts are heterogeneously dense, which may obscure small masses (category c / 51-75% glandular tissue). Current study was also evaluated with a Computer Aided Detection (CAD) system. There are benign calcifications in both breasts. There also is a biopsy clip in the left breast. No significant masses, calcifications, or other findings are seen in either breast. There has been no significant interval change. IMPRESSION: BENIGN There is no mammographic evidence of malignancy. A 1 year screening mammogram is recommended. Based on the Tyrer Cuzick model (a risk assessment model) the patient's lifetime risk is 10.9% and her 10 year risk is 5.3%. According to the ACR, ACS, and NCCN guidelines, an annual breast MRI exam along with mammogram is recommended if the patient's lifetime risk is 20% or greater. This exam was interpreted at Station ID: [id number]. NOTE: For mammograms, a report in lay terms will be sent to the patient. Approximately 15% of breast malignancies will not be visualized mammographically. In the management of a palpable breast mass, a negative mammogram must not discourage biopsy of a clinically suspicious lesion. Electronically Signed By: Jarrett mckeon/jason:09/30/2022 17:31:47 letter sent: Normal Exam ACR BI-RADS Category 2: Benign Finding(s) 3342F
== END ==
PROVIDERS: Family Provider Family Medicine; PCP Family Medicine; Referring Provider Family Medicine; Visit Provider Family Medicine
DX: Z12.31 Encounter for screening mammogram for malignant neoplasm of breast (principal)
CPT/HCPCS: 77063; 77067

== ENCOUNTER → 2022-12-23 06:51 | Outpatient (CLI) | payer MEDICARE, BC, SELFPAY ==
[2022-12-23 08:57] LABS: Free T3, Triiodothyronine Free 3.95 pg/mL (2.77-5.27)
[2022-12-23 08:59] LABS: Free T4, Direct Thyroxine 1.42 ng/dL (0.78-2.19)
[2022-12-23 09:12] LABS: Thyroid Stimulating Hormone 2.05 uIU/mL (0.47-4.68)
== END ==
PROVIDERS: Family Provider Family Medicine; PCP Family Medicine; Referring Provider Family Medicine; Visit Provider Family Medicine
DX: E03.9 Hypothyroidism, unspecified (principal)
CPT/HCPCS: 36415; 84439; 84443; 84481

== ENCOUNTER → 2023-02-14 06:42 | Outpatient (CLI) | payer MEDICARE, BC, SELFPAY ==
[2023-02-14 09:39] LABS: TSH w/ Reflex to FT4 2.44 uIU/mL (0.47-4.68)
== END ==
PROVIDERS: Family Provider Family Medicine; PCP Family Medicine; Referring Provider Family Medicine; Visit Provider Family Medicine
DX: E03.9 Hypothyroidism, unspecified (principal)
CPT/HCPCS: 36415; 84443

== ENCOUNTER → 2023-04-12 07:46 | Outpatient (CLI) | payer MEDICARE, BC, SELFPAY ==
--- NOTE | 2023-04-12 | DI.RAD.S_ITS ---
PROCEDURE: XR HIP W PEL IF DONE RT 2V INDICATIONS: right hip pain TECHNIQUE: AP pelvis with lateral view(s) of the right hip(s). COMPARISON: None. FINDINGS: Bones: No fractures or dislocations. Moderate right hip joint osteoarthritic changes are seen. No evidence of avascular necrosis of femoral head. Pelvic ring appears intact. No suspicious bony lesions. Soft tissues: The visualized bowel gas pattern is normal. No suspicious soft tissue calcifications. IMPRESSION: Moderate right hip joint osteoarthritis. No hip fracture or dislocation. No evidence of avascular necrosis. Dictated by: Louie Canales M.D. on 04/12/2023 at 10:32 Approved by: Louie Canales M.D. on 04/12/2023 at 10:32
== END ==
PROVIDERS: Family Provider Family Medicine; PCP Family Medicine; Referring Provider Chiropractor; Visit Provider Chiropractor
DX: M16.11 Unilateral primary osteoarthritis, right hip (principal); M25.551 Pain in right hip
CPT/HCPCS: 73502

== ENCOUNTER → 2023-05-17 16:01 | Outpatient (CLI) | payer MEDICARE, BC, SELFPAY ==
[2023-05-17 19:45] LABS: Appearance Urine UA CLEAR; Bilirubin Urine UA NEGATIVE (NEGATIVE); Color Urine UA YELLOW; Glucose Urine UA NEGATIVE (Negative); Ketones Urine UA NEGATIVE (NEGATIVE); Leukocyte Esterase Urine UA NEGATIVE (NEGATIVE); Nitrite Urine UA NEGATIVE (Negative); Occult Blood Urine UA TRACE-INTACT (Negative); Protein Urine UA NEGATIVE (Negative); Specific Gravity Urine UA <=1.005 (1.000-1.035); Urobilinogen Urine UA 0.2 E.U./dL (0.2)
[2023-05-17 20:01] LABS: pH Urine UA 5.5 (4.5-8.0)
[2023-05-17 20:09] LABS: Bacteria Urine None Seen; Culture Indicated Urine Cult Not Indicated; RBC Urine None Seen (0-5/HPF); Squamous Epithelial Cell Urine None Seen (0-5/HPF); WBC Urine None Seen (0-5/HPF)
== END ==
PROVIDERS: Family Provider Family Medicine; PCP Family Medicine; Visit Provider Family Medicine
DX: R30.0 Dysuria (principal); R31.9 Hematuria, unspecified
CPT/HCPCS: 81001

== ENCOUNTER → 2023-07-21 06:44 | Outpatient (CLI) | payer MEDICARE, BC, SELFPAY ==
[2023-07-21 08:26] LABS: Add Manual Diff / Slide Review NO; Basophils Absolute Auto 0 /uL (0-100); Basophils Percent Auto 0.8 % (0-2); Eosinophils Absolute Auto 200 /uL (0-450); Eosinophils Percent Auto 2.8 % (2-4); Hematocrit 37.8 % (36-46); Hemoglobin 12.7 g/dL (12.0-16.0); Lymphocytes Absolute Auto 1900 /uL (1100-4500); Lymphocytes Percent Auto 30.3 % (25-40); Mean Corpuscular HGB Conc 33.5 % (30-36); Mean Corpuscular Hemoglobin 29.6 PG (26-34); Mean Corpuscular Volume 88.5 fL (80-100); Monocytes Absolute Auto 500 /uL (0-900); Monocytes Percent Auto 8.5 % (3-14); Neutrophils Absolute Auto 3700 /uL (1500-7000); Neutrophils Percent Auto 57.6 % (50-75); Platelet Count 289 X10^3/uL (150-400); Red Blood Cell Count 4.28 X10^6/uL (4.0-5.2); Red Cell Distribution Width 13.4 % (11.6-14.8); White Blood Cell Count 6.3 X10^3/uL (4.5-11.0)
[2023-07-21 08:46] LABS: Alanine Aminotransferase 19 IU/L (<35); Albumin Globulin Ratio 1.4 (1.0-2.8); Alkaline Phosphatase 55 U/L (38-126); Aspartate Aminotransferase 21 IU/L (14-36); Blood Urea Nitrogen 13 mg/dL (7-17); Calcium 9.7 mg/dL (8.4-10.2); Carbon Dioxide 26 mmol/L (22-32); Chloride 105 mmol/L (98-107); Cholesterol 204 mg/dL (140-199); Estimated Glomerular Filt Rate > 60 mL/min (>60); Globulin 2.8 g/dL (1.7-4.1); Glucose 89 mg/dL (80-110); HDL Cholesterol 65 mg/dL (40-60); HEMOLYSIS < 15 (0-50); LDL Cholesterol Calculated 121 mg/dL (<100); Potassium 4.4 mmol/L (3.4-5.1); Sodium 138 mmol/L (137-145); Total Protein 6.8 g/dL (6.3-8.2); Triglycerides 90 mg/dL (35-150)
[2023-07-21 09:12] LABS: TSH w/ Reflex to FT4 3.42 uIU/mL (0.47-4.68)
== END ==
PROVIDERS: Family Provider Family Medicine; PCP Family Medicine; Referring Provider Family Medicine; Visit Provider Family Medicine
DX: E03.9 Hypothyroidism, unspecified (principal); E78.00 Pure hypercholesterolemia, unspecified; I10 Essential (primary) hypertension
CPT/HCPCS: 36415; 80053; 80061; 84443; 85025

== ENCOUNTER → 2023-11-22 09:05 | Outpatient (CLI) | payer MEDICARE, BC, SELFPAY ==
--- NOTE | 2023-11-22 09:30 | DI.MG.S_ITS ---
BILATERAL DIGITAL SCREENING MAMMOGRAM 3D/2D WITH CAD: 11/22/2023 CLINICAL: Routine screening. Comparison is made to exams dated: 09/30/2022 mammogram and 09/04/2021 mammogram - [facility]. Both breasts are heterogeneously dense, which may obscure small masses (category c / 51-75% glandular tissue). Current study was also evaluated with a Computer Aided Detection (CAD) system. There is a biopsy clip in the left breast. No significant masses, calcifications, or other findings are seen in either breast. There has been no significant interval change. IMPRESSION: BENIGN There is no mammographic evidence of malignancy. A 1 year screening mammogram is recommended. Based on the Tyrer Cuzick model (a risk assessment model) the patient's lifetime risk is 10.4% and her 10 year risk is 5.3%. According to the ACR, ACS, and NCCN guidelines, an annual breast MRI exam along with mammogram is recommended if the patient's lifetime risk is 20% or greater. This exam was interpreted at Station ID: [id number]. NOTE: For mammograms, a report in lay terms will be sent to the patient. Approximately 15% of breast malignancies will not be visualized mammographically. In the management of a palpable breast mass, a negative mammogram must not discourage biopsy of a clinically suspicious lesion. Electronically Signed By: Dyan Singh M.D., PH.D eb/jason:11/22/2023 10:01:41 letter sent: Normal Exam ACR BI-RADS Category 2: Benign Finding(s) 3342F
== END ==
PROVIDERS: Family Provider Family Medicine; PCP Family Medicine; Referring Provider Family Medicine; Visit Provider Family Medicine
DX: Z12.31 Encounter for screening mammogram for malignant neoplasm of breast (principal); R92.333 Mammographic heterogeneous density, bilateral breasts
CPT/HCPCS: 77063; 77067

== ENCOUNTER → 2024-05-25 09:15 | Outpatient (CLI) | payer MEDICARE, BC, SELFPAY ==
--- NOTE | 2024-05-25 09:16 | DI.RAD.S_ITS ---
PROCEDURE: XR HIP W PEL IF DONE RT 2V INDICATIONS: Hip Pain TECHNIQUE: AP pelvis with lateral view(s) of the right hip(s). COMPARISON: [facility], , XR HIP W PEL IF DONE RT 2V, 04/12/2023, 7:57. FINDINGS: Bones: No fractures or dislocations. Pelvic ring appears intact. Osteoarthritic changes present in the right hip with bone sclerosis and small osteophyte formation. No suspicious bony lesions. Compared to prior study of 04/12/2023, there has been a slight increase in the sclerosis along the acetabulum. Soft tissues: The visualized bowel gas pattern is normal. No suspicious soft tissue calcifications. IMPRESSION: Moderate osteoarthritic changes in the right hip. Dictated by: Asa Houser M.D. on 05/25/2024 at 10:29 Approved by: Asa Houser M.D. on 05/25/2024 at 10:33
== END ==
PROVIDERS: Family Provider Family Medicine; PCP Family Medicine; Referring Provider Family Medicine; Visit Provider Family Medicine
DX: M25.551 Pain in right hip (principal)
CPT/HCPCS: 73502

== ENCOUNTER → 2024-07-17 06:41 | Outpatient (CLI) | payer MEDICARE, BC, SELFPAY ==
[2024-07-17 08:37] LABS: Cholesterol 208 mg/dL (140-199); HDL Cholesterol 72 mg/dL (40-60); LDL Cholesterol Calculated 116 mg/dL (<100); Triglycerides 102 mg/dL (35-150)
[2024-07-17 09:07] LABS: TSH w/ Reflex to FT4 3.39 uIU/mL (0.47-4.68)
== END ==
PROVIDERS: Family Provider Family Medicine; PCP Family Medicine; Referring Provider Family Medicine; Visit Provider Family Medicine
DX: E03.9 Hypothyroidism, unspecified (principal); I10 Essential (primary) hypertension; E78.00 Pure hypercholesterolemia, unspecified
CPT/HCPCS: 36415; 80061; 84443

== ENCOUNTER → 2025-04-16 | Outpatient (CLI) | payer MEDICARE, BC, SELFPAY ==
--- NOTE | 2025-04-16 15:07 | DI.MG.S_ITS ---
MM screening mammo BI: 04/16/2025. BI-RADS: 2 CLINICAL: 69-year old female for bilateral screening mammogram. Tyrer-Cuzick lifetime risk of 10.5%. No personal or first-degree family history of breast cancer. The patient had a prior left breast biopsy. PRIOR EXAMS 11/22/2023, 09/30/2022, 11/09/2021, 10/26/2021, 09/04/2021. MAMMOGRAPHY TECHNIQUE: 2D and 3D (tomosynthesis) digital mammographic views obtained, with additional images as needed for full coverage. Current study was also evaluated with a Computer Aided Detection (CAD) system. DENSITY D. The breasts are extremely dense, which lowers the sensitivity of mammography. MAMMOGRAPHY FINDINGS Right: No suspicious mass, asymmetry, microcalcification, or other abnormality seen. No significant change from comparison. Left: Biopsy marker present on the left. There are no suspicious masses, calcifications, or other findings in the breast. No significant change from comparison. IMPRESSION: Right * No evidence of malignancy. Left * No evidence of malignancy with benign findings. RECOMMENDATIONS Bilateral * Annual screening mammography. OVERALL ASSESSMENT CATEGORY BI-RADS-2: Benign. The [employer] recommends annual screening mammography beginning at age 40 for women with average risk of breast cancer. ELECTRONICALLY SIGNED: Halima Schulte M.D. on 04/19/2025 at 07:04:34 PM PT Interpreting Station ID: [id number]
== END ==
LOC: MAMMO 15:06
PROVIDERS: Family Provider Family Medicine; PCP Family Medicine; Referring Provider Family Medicine; Visit Provider Family Medicine
DX: Z12.31 Encounter for screening mammogram for malignant neoplasm of breast (principal); R92.343 Mammographic extreme density, bilateral breasts
CPT/HCPCS: 77063; 77067

== ENCOUNTER → 2025-07-30 06:46 | Outpatient (CLI) | payer MEDICARE, BC, SELFPAY ==
[2025-07-30 07:52] LABS: Add Manual Diff / Slide Review NO; Hematocrit 39.7 % (36-46); Hemoglobin 13.4 g/dL (12.0-16.0); Lymphocytes Absolute Auto 2100 /uL (1100-4500); Mean Corpuscular HGB Conc 33.8 % (30-36); Mean Corpuscular Hemoglobin 30.1 PG (26-34); Mean Corpuscular Volume 88.9 fL (80-100); Platelet Count 294 X10^3/uL (150-400)
[2025-07-30 08:14] LABS: Alanine Aminotransferase 14 IU/L (<35); Albumin 4.1 g/dL (3.5-5.0); Albumin Globulin Ratio 1.5 (1.0-2.8); Alkaline Phosphatase 65 U/L (38-126); Blood Urea Nitrogen 15 mg/dL (7-17); Calcium 9.4 mg/dL (8.4-10.2); Carbon Dioxide 26 mmol/L (22-32); Chloride 106 mmol/L (98-107); Cholesterol 217 mg/dL (140-199); Estimated Glomerular Filt Rate > 60 mL/min (>60); Globulin 2.8 g/dL (1.7-4.1); Glucose 93 mg/dL (70-99); HDL Cholesterol 80 mg/dL (40-60); HEMOLYSIS < 15 (0-50); Potassium 4.4 mmol/L (3.4-5.1); Sodium 139 mmol/L (137-145); Total Protein 6.9 g/dL (6.3-8.2); Triglycerides 103 mg/dL (35-150)
[2025-07-30 08:31] LABS: Free T4, Direct Thyroxine 1.00 ng/dL (0.78-2.19)
== END ==
PROVIDERS: Family Provider Family Medicine; PCP Family Medicine; Referring Provider Family Medicine; Visit Provider Family Medicine
DX: E03.9 Hypothyroidism, unspecified (principal); E78.00 Pure hypercholesterolemia, unspecified
CPT/HCPCS: 36415; 80053; 80061; 84439; 85025